=== PATIENT | female | born 1990 | race Caucasian/White ===

== ENCOUNTER 2018-02-23 13:51 | Emergency (ER) | payer OTHER, MEDICAID ==
[~2018-02-23] VITALS: Ht 165.1 cm; Wt 78.0 kg
[2018-02-23 13:53] VITALS: BP 125/78
[2018-02-23] MEDS ORDERED: dexamethasone sod phosphate 10mg/ml inj IM STA (14:04)
[2018-02-23] MEDS ORDERED: albuterol 2.5 MG/3 ML nebule CONTNEB PRN (14:05)
[2018-02-23] MEDS ORDERED: ALBU8HFA PO (14:24)
[2018-02-23] MEDS ORDERED: dexamethasone 4mg tablet PO STA (14:52)
== END 2018-02-23 15:33 | disposition home or self-care (01) ==
LOC: ER 13:52
DX: J45.909 Unspecified asthma, uncomplicated (principal); F17.200 Nicotine dependence, unspecified, uncomplicated; Z88.2 Allergy status to sulfonamides
CPT/HCPCS: 94644; 94760; 99285; J8540; J1100

== ENCOUNTER 2019-07-03 01:33 | Emergency (ER) | payer MEDICAID, OTHER ==
[~2019-07-03] VITALS: Ht 165.1 cm; Wt 81.8 kg
[2019-07-03 02:23] LABS: BASOPHILS % (AUTO) 0.5 % (0-1); EOSINOPHILS # (AUTO) 0.3 X10'3 (0-0.9); EOSINOPHILS % (AUTO) 3.9 % (0-6); HEMATOCRIT 41.9 % (35.0-45.0); HEMOGLOBIN 14.1 g/dl (12.0-16.0); LYMPHOCYTES # (AUTO) 2.6 X10'3 (1.1-4.8); MEAN CORPUSCULAR HGB CONC 33.7 g/dL (33.0-36.5); MEAN CORPUSCULAR VOLUME 89.1 FL (78-98); MEAN PLATELET VOLUME 7.3 FL (7.4-10.4); MONOCYTES % (AUTO) 13.1 % (2-12); NEUTROPHILS # (AUTO) 3.6 X10'3 (1.8-7.7); NEUTROPHILS % (AUTO) 47.5 % (42-75); PLATELET COUNT 316 X10'3 (140-440); RED BLOOD COUNT 4.71 X10'6 (4.20-5.60); RED CELL DISTRIBUTION WIDTH 13.9 % (11.5-14.5); WHITE BLOOD COUNT 7.5 X10'3 (4.5-11.0)
[2019-07-03] MEDS ORDERED: NO HOME MEDS (02:24)
--- NOTE | 2019-07-03 02:29 | NUR ---
The patient is a 28 year old female who self presented for a psychiatric assessment. She has been increasingly depressed and suicidal in recent months after the breakup of her 7 year marriage. She has been acting impulsively in recent months. She quit her good paying job and recently went on a road trip using all of her funds. Most recently she was visiting a friend in [place] and received treatment in the local ER there for a flare up of her asthma. She was given a prescription for antibiotics and prednisone but had never medication filled at a pharmacy "because I wasn't expecting to be alive" She stated that she has been buying a benzodiazpine like drug off line and has been planning to overdose on it. She did take an overdose two weeks ago on Heroin. She has been drinking heavily for the past 5 months "8 drinks per day" She has a long hx of mental health symptoms and stated she has had chronic suicidal thoughts and depression since age 7. She has had many suicide attempts in her teens. She has had many trials of medications but states currently she does not take any psychiatric medications or is being seen in the community. She has a long hx of cutting behaviors and has numerous superfical cuts to her left upper arm. She denies psychiotic symptoms and none were evident during the assessment. She denies a hstory of an eating disorder. She does state that her appetite has been very poor and "nothing tastes good" She reports her concentration and focus have been poor. She is having racing thoughts. She reports very high anxiety. She was very tearful during the assessment but was cooperative. Dr. Lawton was made aware that her lungs sounded very course and she had inspiratory and expiratory wheezes.
[2019-07-03 02:36] LABS: URINE HCG NEGATIVE (NEG)
[2019-07-03 02:37] LABS: CLARITY,URINE CLEAR (Clear); COLOR,URINE AMBER (Yellow); GLUCOSE, URINE NEGATIVE (Neg); KETONES,URINE NEGATIVE (Neg); LEUKOCYTE ESTERASE ,URINE NEGATIVE (Neg); NITRITES, URINE NEGATIVE (Neg); OCCULT BLOOD,URINE NEGATIVE (Neg); PROTEIN,URINE NEGATIVE (Neg); UROBILINOGEN,URINE 0.2 E.U/dL (0.2-1.0)
[2019-07-03 02:38] LABS: ALANINE AMINOTRANSFERASE 21 U/L (12-78); ALBUMIN 3.8 G/DL (3.4-5.0); ALBUMIN/GLOBULIN RATIO 0.9 (1.1-1.5); ALKALINE PHOSPHATASE 76 IU/L (46-116); ANION GAP 9 (8-16); ASPARTATE AMINO TRANSFERASE 16 U/L (10-37); BILIRUBIN,TOTAL 0.5 MG/DL (0.1-1.0); BLOOD UREA NITROGEN 7 MG/DL (7-18); BUN/CREATININE RATIO 8.1 (6.6-38.0); CHLORIDE 104 MMOL/L (99-107); CREATININE 0.86 MG/DL (0.40-0.90); GLUCOSE 116 MG/DL (70-104); POTASSIUM 3.5 MMOL/L (3.5-5.1); SODIUM 141 MMOL/L (135-145); TOTAL CARBON DIOXIDE 28.3 MMOL/L (24-32); TOTAL PROTEIN 8.2 G/DL (6.4-8.2); eGFR 80 ML/MIN
[2019-07-03] MEDS ORDERED: LORazepam 0.5 MG tablet PO STA (02:42)
[2019-07-03 02:43] LABS: UA COLLECTION TYPE NON-SPECIFIED
[2019-07-03] MEDS ORDERED: ipratropium/albuterol 3ml nebule NEB PRN (02:45)
[2019-07-03 02:48] LABS: URINE AMPHETAMINE SCREEN NEGATIVE (Neg); URINE BARBITUATE SCREEN NEGATIVE (Neg); URINE BENZODIAZEPINES SCREEN NEGATIVE (Neg); URINE CANNABINOID SCREEN POSITIVE (Neg); URINE COCAINE SCREEN NEGATIVE (Neg); URINE METHADONE SCREEN NEGATIVE (Neg); URINE OPIATE SCREEN NEGATIVE (Neg); URINE PHENCYCLIDINE SCREEN NEGATIVE (Neg)
[2019-07-03 02:48] LABS: ETHANOL 0.036 GM/DL (0.0-0.010)
--- NOTE | 2019-07-03 02:52 | NUR ---
Ativan 0.5mg PO Once adminsitered.
--- NOTE | 2019-07-03 03:15 | NUR ---
Breathing treatment adminstered by respiratory; pt states she feels better and attempting to sleep at this time.
--- NOTE | 2019-07-03 06:30 | NUR ---
Pt currently sleeping on her back; normal RR even and unlabored.
[2019-07-03] MEDS ORDERED: nicotine 14mg patch - 24hr TD SCH (08:00)
--- NOTE | 2019-07-03 08:17 | NUR ---
Pt up for breakfast ate 100%. Pt shared with this creative writer she is recently separted from . She has a restrain order on him. 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 She was placed in foster care at age 16.
--- NOTE | 2019-07-03 10:15 | NUR ---
Pt sleeping; RR even and unlabored. No s/s of distress.
--- NOTE | 2019-07-03 12:22 | NUR ---
Pt up for lunch; engaging in conversation w/data security coordinator. Remains suicidial w/out a plan.
--- NOTE | 2019-07-03 13:41 | NUR ---
breaking primary, RN. pt is supine, in bed, quietly talking to security, no s/s of anxiety observed, will continue to monitor
--- NOTE | 2019-07-03 14:40 | NUR ---
Pt crying asking, "can I have that pill that knocked me out last night." Spoke with the pt she calmed down. She said it has to do with being here and she does not want to be here. Will call psychiatrist travel information center supervisor.
--- NOTE | 2019-07-03 16:10 | NUR ---
Pt agreed to take Ativan 1mg one time dose. She is no longer crying.
[2019-07-03] MEDS ORDERED: LORazepam 1 MG tablet PO ONE (17:00)
--- NOTE | 2019-07-03 17:40 | NUR ---
Per [facility] office pt accepted by Dr. Lund at 1711 to [facility] per [facility]. Transport @ [id number]
--- NOTE | 2019-07-03 18:31 | NUR ---
Pt eating dinner after talking on the phone with a friend. She is tearful but in better spirits regarding pending discharge. Addendum: 07/03/19 at 1833 by RYAN Not discharge but transfer.
[2019-07-03 20:10] VITALS: BP 106/73
== END 2019-07-03 20:20 ==
LOC: ER 01:34
DX: R45.851 Suicidal ideations (principal); J20.9 Acute bronchitis, unspecified; F10.129 Alcohol abuse with intoxication, unspecified; F12.90 Cannabis use, unspecified, uncomplicated; J45.909 Unspecified asthma, uncomplicated; Z88.2 Allergy status to sulfonamides
CPT/HCPCS: 36415; 80053; 80305; 80320; 81003; 81025; 84443; 85025; 94640; 94760; 99285